=== PATIENT | male | born 1950 | race Caucasian/White ===

== ENCOUNTER 2018-12-20 06:05 | Observation (INO) ==
[~2018-12-20 06:05] MED LIST: Bacitracin 50,000 UNIT, Polymyxin B Sulfate 500,000 UNIT, Sodium Chloride IRRigation 1,... IR ONE
[2018-12-20] MEDS ORDERED: Acetaminophen IV 1,000 MG/100 ML INFUS..BTL IVPB ONE (06:19)
[2018-12-20] MEDS ORDERED: Albuterol 2.5 MG/3 ML NEBULIZER IH PRN (06:19)
[2018-12-20] MEDS ORDERED: CeFAZolin Syr 2,000MG/20 ML 2,000 MG/20 ML SYRINGE IVPB ONE (06:19)
[2018-12-20] MEDS ORDERED: Ringers Solution, Lactated 1,000 ML IVC SCH (06:30)
[2018-12-20] MEDS ORDERED: *HR* Propofol 200 MG/20 ML VIAL IVP ONE (06:56)
[2018-12-20] MEDS ORDERED: *HR* Midazolam HCl 2 MG/2 ML VIAL ONE (06:56)
[2018-12-20] MEDS ORDERED: *HR* Remifentanil 1 MG VIAL IVP ONE ×2 (06:56→06:57)
[2018-12-20] MEDS ORDERED: *HR* FentaNYL (PF) 100 MCG/2 ML VIAL ONE (06:56)
[2018-12-20] MEDS ORDERED: *HR* Succinylcholine 200 MG/10 ML VIAL IVP ONE (06:57)
[2018-12-20] MEDS ORDERED: Ondansetron 4 MG/2 ML VIAL ONE (06:57)
[2018-12-20] MEDS ORDERED: Dexamethasone 4 MG/ML VIAL ONE (06:57)
[2018-12-20] MEDS ORDERED: Lidocaine -MPF 2% 2 ML VIAL ONE (06:57)
[2018-12-20] MEDS ORDERED: Lidocaine HCL 4 ML Topical Solution (Laryng-O-Jet Kit Sterile Pak) TP ONE (07:04)
[2018-12-20] MEDS ORDERED: *HR* OxyCODONE Immed Rel 5 MG TABLET PO PRN ×2 (07:09→22:27)
[2018-12-20] MEDS ORDERED: Morphine Sulfate 2 MG/ML SYRINGE IVP PRN (07:09)
[2018-12-20] MEDS ORDERED: Lacri-Lube 3.5 GM TUBE ONE (07:59)
[2018-12-20] MEDS ORDERED: *HR* Rocuronium Bromide 50 MG/5 ML VIAL ONE (07:59)
[2018-12-20] MEDS ORDERED: Neostigmine Methylsulfate 3 MG/3 ML SYRINGE ONE (10:00)
[2018-12-20] MEDS ORDERED: *HR* PHENYLEPHRINE 1,000 MCG/10 ML SYRINGE IVP ONE ×2 (10:21→10:48)
[2018-12-20] MEDS ORDERED: *HR* Phenylephrine 10 MG/ML VIAL ONE (10:55)
[2018-12-20] MEDS ORDERED: *HR* HYDROMORPHONE 2 MG/ML VIAL ONE (11:16)
[2018-12-20] MEDS ORDERED: Ondansetron 4 MG/2 ML VIAL IVP PRN (13:48)
[2018-12-20] MEDS: Apixaban 5 MG TABLET PO SCH (20:13)
[2018-12-21] MEDS ORDERED: ceFAZolin 1,000 MG in Water for inj. (sterile) 10 ML IVPB SCH
[2018-12-21] MEDS: ceFAZolin 1,000 MG in Water for inj. (sterile) 10 ML IVP SCH ×2 (00:33→08:19)
[2018-12-21] MEDS: Apixaban 5 MG TABLET PO SCH ×2 (08:17→21:58)
[2018-12-21] MEDS: Multivit/Ca/Min/Fe/FA 1 TAB TABLET PO SCH (08:18)
[2018-12-21] MEDS: Aspirin 81 MG TAB.CHEW PO SCH (08:18)
[2018-12-21] MEDS: Metoprolol XL (24 HR) Succ 50 MG TAB.ER.24H PO SCH (08:18)
[2018-12-21] MEDS: amLODIPine 5 MG TABLET PO SCH (08:18)
[2018-12-21] MEDS: Lisinopril-HCTZ 20-12.5mg TABLET PO SCH (08:18)
[2018-12-21] MEDS: Ascorbic Acid 500 MG TABLET PO SCH (08:19)
[2018-12-21] MEDS ORDERED: hydroCHLOROthiazide 25 MG TABLET PO SCH (09:00)
[2018-12-21] MEDS: *HR* OxyCODONE Immed Rel 5 MG TABLET PO PRN ×2 (10:01→21:59)
[2018-12-22] MEDS: Ascorbic Acid 500 MG TABLET PO SCH (07:39)
[2018-12-22] MEDS: amLODIPine 5 MG TABLET PO SCH (07:39)
[2018-12-22] MEDS: Apixaban 5 MG TABLET PO SCH ×2 (07:39→21:56)
[2018-12-22] MEDS: Metoprolol XL (24 HR) Succ 50 MG TAB.ER.24H PO SCH (07:39)
[2018-12-22] MEDS: Lisinopril-HCTZ 20-12.5mg TABLET PO SCH (07:39)
[2018-12-22] MEDS: Aspirin 81 MG TAB.CHEW PO SCH (07:39)
[2018-12-22] MEDS: Multivit/Ca/Min/Fe/FA 1 TAB TABLET PO SCH (07:39)
[2018-12-22] MEDS: *HR* OxyCODONE Immed Rel 5 MG TABLET PO PRN ×2 (07:45→21:55)
[2018-12-22 09:38] LABS: Basophils % 0.3 %; Eosinophils % 0.2 %; Hematocrit 37.7 % (37.5-50.1); Hemoglobin 13.2 g/dL (12.9-16.9); Immature Granulocytes % 0.4 % (0-4); Lymphocytes # 1.4 K/mcL (0.6-4.6); Lymphocytes % 11.3 %; Mean Corpuscular Hemoglobin 31.8 pg (28.0-33.3); Mean Corpuscular Volume 90.8 fL (83.0-100.0); Mean Platelet Volume 10.4 fL (9.4-12.4); Monocytes # 1.5 K/mcL (0.0-1.3); Monocytes % 11.5 %; Neutrophils # 9.7 K/mcL (1.6-8.9); Platelet Count 194 K/mcL (140-400); Red Blood Count 4.15 M/mcL (4.19-5.50); Red Cell Distribution Width 12.9 % (11.5-14.5); Segmented Neutrophils % 76.3 %; White Blood Count 12.8 K/mcL (4.3-11.1)
[2018-12-22 09:59] LABS: Alanine Aminotransferase 24 Units/L (7-52); Albumin 3.8 g/dL (3.5-5.7); Albumin/Globulin Ratio 1.3 (1.1-2.2); Alkaline Phosphatase 38 Units/L (34-104); Aspartate Amino Transferase 37 Units/L (13-39); BUN/Creatinine Ratio 18 (6-26); Bilirubin,Total 2.8 mg/dL (0.3-1.0); Blood Urea Nitrogen 15 mg/dL (8-23); Carbon Dioxide 27 mEq/L (23-29); Chloride 100 mEq/L (98-107); Globulin 2.9 g/dL (2.4-3.5); Glucose 155 mg/dL (70-105); Osmolality,Calculated 284 (280-300); Potassium 3.3 mEq/L (3.5-5.1); Sodium 135 mEq/L (136-145); Total Protein 6.7 g/dL (6.4-8.9); eGFR For African Americans > 60 (> 60); eGFR For Non-African Americans > 60 (> 60)
[2018-12-22] MEDS: Ipratropium/Albuterol Neb 3 ML IH SCH ×3 (14:01→22:20)
[2018-12-22 16:33] LABS: Adenovirus Not Detected (Not Detect); Bordetella Pertussis Not Detected (Not Detect); Chlamydophila pneumoniae Not Detected (Not Detect); Coronavirus 229E Not Detected (Not Detect); Coronavirus HKU1 Not Detected (Not Detect); Coronavirus NL63 Not Detected (Not Detect); Coronavirus OC43 Not Detected (Not Detect); Human Metapneumovirus Not Detected (Not Detect); Human Rhinovirus/Enterovirus Not Detected (Not Detect); Influenza A Subtype 2009 H1 Not Detected (Not Detect); Influenza A Untypeable Not Detected (Not Detect); Influenza B Not Detected (Not Detect); Mycoplasma pneumoniae Not Detected (Not Detect); Parainfluenza Virus 1 Not Detected (Not Detect); Parainfluenza Virus 2 Not Detected (Not Detect); Parainfluenza Virus 3 Not Detected (Not Detect); Parainfluenza Virus 4 Not Detected (Not Detect); Respiratory Syncytial Virus Not Detected (Not Detect)
[2018-12-22] MEDS ORDERED: Acetaminophen 325 MG TABLET PO PRN (22:48)
[2018-12-23] MEDS: Ipratropium/Albuterol Neb 3 ML IH SCH ×2 (04:30→11:18)
[2018-12-23] MEDS: Lisinopril-HCTZ 20-12.5mg TABLET PO SCH (11:09)
[2018-12-23] MEDS: amLODIPine 5 MG TABLET PO SCH (11:09)
[2018-12-23] MEDS: Ascorbic Acid 500 MG TABLET PO SCH (11:09)
[2018-12-23] MEDS: Aspirin 81 MG TAB.CHEW PO SCH (11:10)
[2018-12-23] MEDS: Multivit/Ca/Min/Fe/FA 1 TAB TABLET PO SCH (11:10)
[2018-12-23] MEDS: Metoprolol XL (24 HR) Succ 50 MG TAB.ER.24H PO SCH (11:10)
[2018-12-23] MEDS: Apixaban 5 MG TABLET PO SCH (11:10)
[2018-12-23 11:21] VITALS: BP 157/58
== END 2018-12-23 15:41 | disposition home health service (06) | DRG 460 ==
LOC: SAMDAY 06:05 → 3ANU 12:58 → INTOOBSV 12:58 → 3NENU 16:48
PROVIDERS: ADMIT Orthopaedic Surgery Orthopaedic Surgery of the Spine; ATTEND Orthopaedic Surgery Orthopaedic Surgery of the Spine